=== PATIENT | male | born 1950 | race Caucasian/White ===

== ENCOUNTER 2019-05-16 08:00 | Outpatient (CLI) | payer OTHER ==
[2019-05-16 18:53] LABS: BASOPHILS # (AUTO) 0.1 10^3/uL (0.0-0.1); BASOPHILS % (AUTO) 0.8 %; EOSINOPHILS # (AUTO) 0.5 10^3/uL (0.0-0.7); HGB - HEMOGLOBIN 12.2 g/dL (14.0-18.0); LYMPHOCYTES # (AUTO) 2.2 10^3/uL (1.5-3.5); LYMPHOCYTES % (AUTO) 26.6 %; MEAN CORPUSCULAR HEMOGLOBIN 29.3 pg (27.0-31.0); MEAN CORPUSCULAR VOLUME 94.7 fL (80.0-94.0); MEAN PLATELET VOLUME 10.6 fL (7.4-11.4); MONOCYTES # (AUTO) 0.9 10^3/uL (0.0-1.0); MONOCYTES % (AUTO) 10.9 %; NEUTROPHILS # (AUTO) 4.6 10^3/uL (1.5-6.6); NEUTROPHILS % (AUTO) 55.5 %; PLT - PLATELET COUNT 223 10^3/uL (130-450); RED BLOOD COUNT 4.16 10^6/uL (4.70-6.10); RED CELL DISTRIBUTION WIDTH 13.2 % (12.0-15.0); WHITE BLOOD COUNT 8.4 x10^3/uL (4.8-10.8)
[2019-05-16 19:16] LABS: ALBUMIN 4.1 g/dL (3.2-5.5); ALBUMIN/GLOBULIN RATIO 1.5 (1.0-2.2); ALKALINE PHOSPHATASE 55 IU/L (42-121); ALT ALANINE AMINOTRANSFERASE 28 IU/L (10-60); AST ASPARTATE AMINOTRANSFERASE 29 IU/L (10-42); BILIRUBIN,TOTAL 0.7 mg/dL (0.2-1.0); BUN - BLOOD UREA NITROGEN 21 mg/dL (6-20); CALCIUM 9.6 mg/dL (8.5-10.3); CARBON DIOXIDE - CO2 21 mmol/L (21-32); CHLORIDE 110 mmol/L (101-111); CHOLESTEROL 175 mg/dL; CREATININE 1.4 mg/dL (0.6-1.2); GFR - MDRD 51 (>89); GLUCOSE 112 mg/dL (70-100); HDL CHOLESTEROL 44 mg/dL; LDL CHOLESTEROL,CALCULATED 98 mg/dL; LDL/HDL RATIO 2.2 (<3.6); SODIUM 142 mmol/L (135-145); TOTAL PROTEIN 6.8 g/dL (6.7-8.2); VLDL CHOLESTEROL 33 mg/dL
== END 2019-05-16 23:59 | disposition home or self-care (01) ==
LOC: LAB.WCP 08:00
PROVIDERS: ATTEND Family Medicine
DX: I10 Essential (primary) hypertension (principal); F10.20 Alcohol dependence, uncomplicated; E78.5 Hyperlipidemia, unspecified; F17.210 Nicotine dependence, cigarettes, uncomplicated; K21.9 Gastro-esophageal reflux disease without esophagitis; K76.0 Fatty (change of) liver, not elsewhere classified; Z12.5 Encounter for screening for malignant neoplasm of prostate
CPT/HCPCS: 36415; 80053; 80061; 83721; 84153; 84443; 85025

== ENCOUNTER 2021-01-25 07:00 | Outpatient (CLI) | payer OTHER ==
--- NOTE | 2021-01-25 15:04 | XRAY Report ---
PROCEDURE: Lumbar Spine 2 View INDICATIONS: SCIATICA, R SIDE TECHNIQUE: 3 views of the lumbar spine were acquired. COMPARISON: None. FINDINGS: Bones: 5 [id number] vertebrae are present. There is mild rightward curvature of the mid lumbar spine. Loss of normal lumbar lordosis. Mild grade 1 retrolisthesis of L3 on L4. Mild grade 1 anterol isthesis of L5 on S1. Multilevel disc space narrowing and endplate osteophyte formation. Facet hypert rophy throughout the mid and lower lumbar spine. No vertebral body compression fractures. No suspici ous bony lesions. Soft tissues: Overlying bowel gas pattern is normal. No suspicious soft tissue calcifications. IMPRESSION: Multilevel degenerative disc and facet disease. No acute fracture. No osseous lesion. If symptoms and/or clinical suspicion for pathology continue, further assessment with repeat plain film s, or advanced imaging (e.g., CT, MRI, or bone scan) is recommended for further assessment. Reviewed by: Merissa Ramirez MD on 01/25/2021 3:03 PM PDT Approved by: Merissa Ramirez MD on 01/25/2021 3:03 PM PDT Station ID: [id number]
== END 2021-01-25 23:59 | disposition home or self-care (01) ==
LOC: DI.N 07:00
PROVIDERS: ATTEND Physician Assistant Medical
DX: M43.16 Spondylolisthesis, lumbar region (principal); M43.17 Spondylolisthesis, lumbosacral region; M47.816 Spondylosis without myelopathy or radiculopathy, lumbar region; M51.36 Other intervertebral disc degeneration, lumbar region; R29.2 Abnormal reflex
CPT/HCPCS: 36415; 84443

== ENCOUNTER 2021-01-25 08:00 | Outpatient (CLI) | payer OTHER ==
[2021-01-25 18:12] LABS: THYROID STIMULATING HORMONE 1.63 uIU/mL (0.34-5.60)
== END 2021-01-25 23:59 | disposition home or self-care (01) ==
LOC: LAB.N 08:00
PROVIDERS: ATTEND Physician Assistant Medical
DX: R29.2 Abnormal reflex (principal)
CPT/HCPCS: 36415; 84443

== ENCOUNTER 2021-02-04 17:02 | Outpatient (CLI) | payer OTHER ==
--- NOTE | 2021-02-05 10:19 | Ultrasound Report ---
PROCEDURE: Head or Neck Soft Tissue INDICATIONS: MASS OF NECK TECHNIQUE: Real time scanning was performed of the neck region of interest, with image documentation . COMPARISON: None. FINDINGS: Ultrasound was performed in the anterior interest over the palpable abnormality. There is a 4.0 x 1.6 x 4.1 cm isoechoic, mildly heterogeneous subcutaneous mass is identical echotexture to sub cutaneous fat, most likely a lipoma. On Doppler ultrasound, there is no visible vascularity within th e mass. IMPRESSION: 1. The palpable abnormality is a 4.0 x 1.6 x 4.1 cm subcutaneous mass, most likely a lipoma. If there is symptoms of pain and rapid interval growth, a differential diagnosis is a liposarcoma. If clinica lly needed, MRI with and without contrast may be helpful. Reviewed by: Kenyon Martinez MD on 02/05/2021 10:17 AM PDT Approved by: Kenyon Martinez MD on 02/05/2021 10:17 AM PDT Station ID: [id number]
== END 2021-02-04 17:03 | disposition home or self-care (01) ==
LOC: DI 17:02
PROVIDERS: ATTEND Physician Assistant Medical
DX: R22.1 Localized swelling, mass and lump, neck (principal)

== ENCOUNTER 2021-02-07 08:00 | Outpatient (CLI) | payer OTHER ==
[2021-02-07 12:23] LABS: BASOPHILS # (AUTO) 0.1 10^3/uL (0.0-0.1); BASOPHILS % (AUTO) 0.8 %; EOSINOPHILS # (AUTO) 0.2 10^3/uL (0.0-0.7); HCT - HEMATOCRIT 42.4 % (42.0-52.0); HGB - HEMOGLOBIN 14.2 g/dL (14.0-18.0); LYMPHOCYTES # (AUTO) 1.8 10^3/uL (1.5-3.5); LYMPHOCYTES % (AUTO) 21.1 %; MEAN CORPUSCULAR HEMOGLOBIN 30.3 pg (27.0-31.0); MEAN CORPUSCULAR HGB CONC 33.5 g/dL (32.0-36.0); MEAN CORPUSCULAR VOLUME 90.4 fL (80.0-94.0); MEAN PLATELET VOLUME 10.5 fL (7.4-11.4); MONOCYTES % (AUTO) 11.6 %; NEUTROPHILS # (AUTO) 5.4 10^3/uL (1.5-6.6); NEUTROPHILS % (AUTO) 64.1 %; PLT - PLATELET COUNT 262 10^3/uL (130-450); RED BLOOD COUNT 4.69 10^6/uL (4.70-6.10); RED CELL DISTRIBUTION WIDTH 13.2 % (12.0-15.0); WHITE BLOOD COUNT 8.4 x10^3/uL (4.8-10.8)
[2021-02-07 12:26] LABS: % IRON SATURATION 32 % (20-50); ALBUMIN 4.8 g/dL (3.2-5.5); ALBUMIN/GLOBULIN RATIO 1.5 (1.0-2.2); ALKALINE PHOSPHATASE 72 IU/L (42-121); ALT ALANINE AMINOTRANSFERASE 34 IU/L (10-60); AST ASPARTATE AMINOTRANSFERASE 42 IU/L (10-42); BILIRUBIN,TOTAL 0.8 mg/dL (0.2-1.0); BUN - BLOOD UREA NITROGEN 33 mg/dL (6-20); CALCIUM 10.6 mg/dL (8.5-10.3); CARBON DIOXIDE - CO2 25 mmol/L (21-32); CHLORIDE 105 mmol/L (101-111); CHOL/HDL RATIO 4.7 (<5.0); CHOLESTEROL 244 mg/dL; CREATININE 1.6 mg/dL (0.6-1.2); GAMMA GLUTAMYL TRANSPEPTIDASE 27 IU/L (8-55); GFR - MDRD 43 (>89); GLUCOSE 108 mg/dL (70-100); HDL CHOLESTEROL 52 mg/dL; IRON 130 ug/dL (45-182); LDL CHOLESTEROL,CALCULATED 132 mg/dL; LDL/HDL RATIO 2.5 (<3.6); POTASSIUM 4.4 mmol/L (3.5-5.0); SODIUM 141 mmol/L (135-145); TOTAL IRON BINDING CAPACITY 412 ug/dL (250-450); TOTAL PROTEIN 7.9 g/dL (6.7-8.2); TRANSFERRIN 294 mg/dL (180-329); TRIGLYCERIDES 301 mg/dL; VLDL CHOLESTEROL 60 mg/dL
[2021-02-07 12:28] LABS: PT - PROTHROMBIN TIME 11.6 secs (9.9-12.6)
[2021-02-07 12:40] LABS: FERRITIN 92.9 ng/mL (23.9-336.2)
== END 2021-02-07 23:59 | disposition home or self-care (01) ==
LOC: LAB.WCP 08:00
PROVIDERS: ATTEND Family Medicine
DX: I10 Essential (primary) hypertension (principal); D64.9 Anemia, unspecified; F10.20 Alcohol dependence, uncomplicated; Z12.5 Encounter for screening for malignant neoplasm of prostate
CPT/HCPCS: 36415; 80053; 80061; 82607; 82728; 82977; 83540; 83721; 84153; 84466; 85025; 85610

== ENCOUNTER 2021-02-17 08:00 | Outpatient (CLI) | payer OTHER ==
[2021-02-19 15:26] LABS: ALBUMIN 4.2 g/dL (3.8-4.8); ALPHA 1 GLOBULIN 0.2 g/dL (0.2-0.3); ALPHA 2 GLOBULIN 0.8 g/dL (0.5-0.9); BETA 1 GLOBULIN 0.4 g/dL (0.4-0.6); BETA 2 GLOBULIN 0.3 g/dL (0.2-0.5); GAMMA GLOBULIN 0.6 g/dL (0.8-1.7)
== END 2021-02-17 23:59 | disposition home or self-care (01) ==
LOC: LAB.WCP 08:00
PROVIDERS: ATTEND Family Medicine
DX: E83.52 Hypercalcemia (principal)
CPT/HCPCS: 36415; 81599; 82306; 82330; 83970; 84155; 84165

== ENCOUNTER 2021-04-08 09:06 | Day surgery (SDC) | payer OTHER ==
[2021-04-08] MEDS ORDERED: LACTATED RINGERS 1,000 ML IV ONE ×3 (09:12→11:24)
[2021-04-08] MEDS ORDERED: MIDAZOLAM 2 MG/2 ML VIAL ONE ×3 (09:48→10:17)
[2021-04-08] MEDS ORDERED: fentaNYL 250 MCG/5 ML VIAL ONE (09:48)
--- NOTE | 2021-04-08 09:53 | HISTORY & PHYSICAL EXAMINATION ---
Chief Complaint - Chief Complaint Chief Complaint: here for colon cancer screening History of Present Illness - History Obtained From Records Reviewed: yes History obtained from: pt Exam Limitations: none - History of Present Illness HPI Comment/Other: No prior colon cancer screening. No symptoms of colon pathology or anemia. History - Past Medical History Cardiovascular: reports: Hypertension Respiratory: reports: None Endocrine/Autoimmune: reports: None GI: reports: GERD : reports: Kidney stones HEENT: reports: None Psych: reports: None Musculoskeletal: reports: Chronic back pain, Other Derm: reports: None MRSA Hx?: No - Past Surgical History General: reports: EGD Meds/Allgy - Home Medications Home Medications: Ambulatory Orders Medication Instructions Recorded Confirmed Gabapentin [Neurontin] 1 tab ORAL BID 04/07/21 04/08/21 Lisinopril [Zestril] 40 mg ORAL DAILY 04/07/21 04/08/21 Metoprolol Tartrate [Lopressor] 25 mg ORAL BID 04/07/21 04/08/21 Triamterene/Hydrochlorothiazid 1 tab ORAL DAILY 04/07/21 04/08/21 [Maxzide 37.5 mg-25 mg Tablet] amLODIPine [Norvasc] 10 mg ORAL DAILY 04/07/21 04/08/21 predniSONE [Prednisone 21-TAB dose 40 mg ORAL DAILY 04/07/21 04/08/21 pack] - Allergies Allergies/Adverse Reactions: Allergies Allergy/AdvReac Type Severity Reaction Status Date / Time Sulfa (Sulfonamide Allergy Anaphylaxis Verified 04/08/21 09:35 Antibiotics) Penicillins AdvReac Rash Verified 04/08/21 09:35 Review of Systems - Other Findings Other Findings: 10 pt ros as above otherwise unremarkable Exam - Vital Signs Reviewed Vital Signs: Yes Vital Signs: Vital Signs x48h Temp Pulse Resp BP Pulse Ox 04/08/21 09:24 36.9 C 65 15 141/73 H 98 - Physical Exam General Appearance: positive: Alert Eyes Bilateral: positive: PERRL, EOMI ENT: positive: No signs of dehydration Neck: positive: No JVD Respiratory: positive: Breath sounds nml Cardiovascular: positive: Regular rate & rhythm Abdomen: positive: Non-tender, No distention Neurologic/Psychiatric: positive: Oriented x3 Conclusion/Plan - Problem List (1) Colon cancer screening Conclusion/Plan: plan colonoscopy. parq held and consent obtained
[2021-04-08] MEDS ORDERED: PROPOFOL 200 MG/20 ML VIAL IVP ONE (10:40)
[2021-04-08] MEDS ORDERED: IPRATROPIUM/ALBUTEROL 3 ML NEB INH PRN ×2 (10:44→11:39)
[2021-04-08] MEDS ORDERED: METOCLOPRAMIDE 10 MG/2 ML VIAL IVP PRN (11:02)
[2021-04-08] MEDS ORDERED: ePHEDrine 50 MG/ML VIAL IVP PRN (11:02)
[2021-04-08] MEDS ORDERED: HYDROmorphone 0.5 MG/0.5 ML SYRINGE IVP PRN (11:02)
[2021-04-08] MEDS ORDERED: fentaNYL 100 MCG/2 ML VIAL IVP PRN (11:02)
[2021-04-08] MEDS ORDERED: ONDANSETRON 4 MG/2 ML VIAL IVP PRN (11:02)
[2021-04-08] MEDS ORDERED: MORPHINE 2 MG/ML CARPUJECT IVP PRN (11:02)
[2021-04-08] MEDS ORDERED: ATROPINE ABBOJECT 1 MG/10 ML SYRINGE IVP PRN (11:02)
[2021-04-08] MEDS ORDERED: NALOXONE 0.4 MG/ML VIAL IVP PRN (11:02)
--- NOTE | 2021-04-08 11:02 | CONSULTATION NOTE ---
Consultation Report: 1015- called in to GI room by RN and MD to assist/rescue sedation. See EMAR
--- NOTE | 2021-04-08 11:44 | CONSULTATION NOTE ---
Consultation Report: 1050 Duoneb tx given upon arrival to PACU for persistent coughing and exp wheezing during procedure, O2 sat stable. Thick yellow secretions noted. No signs of bile or aspiration noted during time witnessed in GI room. 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 requesting 2nd duoneb order. order placed as well as order for STAT portable CXR. Pt in Phase 2 recovery and VSS
[2021-04-08] MEDS ORDERED: LACTATED RINGERS 1,000 ML IV SCH (12:00)
--- NOTE | 2021-04-08 12:10 | XRAY Report ---
PROCEDURE: Chest 1 View X-Ray INDICATIONS: wheezing post colonoscopy TECHNIQUE: One view of the chest was acquired. COMPARISON: Chest x-ray 03/27/2016 FINDINGS: Surgical changes and devices: None. Lungs and pleura: No pleural effusions or pneumothorax. Lungs are clear. Mediastinum: Mediastinal contours appear normal. Heart size is normal. Bones and chest wall: No suspicious bony lesions. Overlying soft tissues appear unremarkable. IMPRESSION: No acute pulmonary process. Reviewed by: Esther Moura MD on 04/08/2021 12:08 PM PDT Approved by: Esther Moura MD on 04/08/2021 12:08 PM PDT Station ID: [id number]
[2021-04-08 12:27] VITALS: BP 120/65
== END 2021-04-08 09:07 | disposition home or self-care (01) ==
LOC: SDS 09:06
PROVIDERS: ATTEND Surgery
PROC: 0DBN8ZX Excision of Sigmoid Colon, Via Natural or Artificial Opening Endoscopic, Diagnostic (ICD-10-PCS; principal; 2021-04-08 10:15)
DX: Z12.11 Encounter for screening for malignant neoplasm of colon (principal); D12.5 Benign neoplasm of sigmoid colon; R06.2 Wheezing; R05 Cough; K57.30 Diverticulosis of large intestine without perforation or abscess without bleeding; I49.3 Ventricular premature depolarization
CPT/HCPCS: 45380; 71045; 94640; J3010; J7120

== ENCOUNTER 2021-05-10 12:46 | Emergency (ER) | payer OTHER ==
--- NOTE | 2021-05-10 14:10 | ED Physician Documentation ---
History of Present Illness - Stated complaint Stated Complaint: BODY ACHES, TROUBLE BREATHING - Chief complaint Chief Complaint: Resp - History obtained from History obtained from: Patient - Additonal information Additional information: Patient comes emergency department chief complaint of cough and body aches with low-grade fever for the last several days. He states that he is a smoker and quit yesterday. He uses an albuterol inhaler every 4-6 hours as needed and has been using this. He states he does not necessarily feel more short of breath than usual but mainly has noticed the cough. The cough seems dry and is intermittent. Patient states he measured a temperature of 100.4 earlier today. He does not know of any Covid exposures or other exposures to sickness. He has not been vaccinated for Covid. No other complaints at this time. Review of Systems Ten Systems: 10 systems reviewed and negative Constitutional: reports: Reviewed and negative Eyes: reports: Reviewed and negative Ears: reports: Reviewed and negative Nose: reports: Reviewed and negative Throat: reports: Reviewed and negative Cardiac: reports: Reviewed and negative. denies: Pedal edema Respiratory: reports: Cough. denies: Dyspnea GI: reports: Reviewed and negative : reports: Reviewed and negative Skin: reports: Reviewed and negative Musculoskeletal: reports: Reviewed and negative Neurologic: reports: Reviewed and negative Psychiatric: reports: Reviewed and negative Endocrine: reports: Reviewed and negative Immunocompromised: reports: Reviewed and negative PD PAST MEDICAL HISTORY - Past Medical History Cardiovascular: Hypertension, High cholesterol GI: GERD Psych: Anxiety Musculoskeletal: Other - Present Medications Home Medications: Ambulatory Orders Medication Instructions Recorded Confirmed Gabapentin [Neurontin] 1 tab ORAL BID 04/07/21 04/08/21 Lisinopril [Zestril] 40 mg ORAL DAILY 04/07/21 04/08/21 Metoprolol Tartrate [Lopressor] 25 mg ORAL BID 04/07/21 04/08/21 Triamterene/Hydrochlorothiazid 1 tab ORAL DAILY 04/07/21 04/08/21 [Maxzide 37.5 mg-25 mg Tablet] amLODIPine [Norvasc] 10 mg ORAL DAILY 04/07/21 04/08/21 predniSONE [Prednisone 21-TAB dose 40 mg ORAL DAILY 04/07/21 04/08/21 pack] Azithromycin [Zithromax] 0 mg PO DAILY #6 tablet 05/10/21 - Allergies Allergies/Adverse Reactions: Allergies Allergy/AdvReac Type Severity Reaction Status Date / Time Sulfa (Sulfonamide Allergy Anaphylaxis Verified 05/10/21 13:30 Antibiotics) Penicillins AdvReac Rash Verified 05/10/21 13:30 PD ED PE NORMAL - Vitals Vital signs reviewed: Yes - General General: Alert and oriented X 3, No acute distress, Well developed/nourished - HEENT HEENT: Atraumatic, PERRL, EOMI, Moist mucous membranes - Neck Neck: Supple, no meningeal sign - Cardiac Cardiac: RRR, No murmur, Strong equal pulses - Respiratory Respiratory: Clear bilaterally, Other (Slightly labored respirations, but patient is able to speak in full sentences.) - Abdomen Abdomen: Soft, Non tender, Non distended - Derm Derm: Normal color, Warm and dry, No rash - Extremities Extremities: No deformity, No edema - Neuro Neuro: Alert and oriented X 3, 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, Normal speech - Psych Psych: Normal mood, Normal affect Results - Vitals Vitals: Vital Signs - 24 hr 05/10/21 05/10/21 13:21 15:39 Temperature 37.8 C 37.3 C Heart Rate 57 L 60 Respiratory 20 18 Rate Blood Pressure 113/67 122/74 O2 Saturation 95 96 Oxygen O2 Source Room air - Rads (name of study) cxr Radiology: Final report received, EMP read indepedently, See rad report (mild atypical pneumonia) PD MEDICAL DECISION MAKING - ED course Complexity details: reviewed results, re-evaluated patient, considered differential, d/w patient ED course: Patient was swabbed for Covid and sent for chest x-ray. Covid test is pending at this time. Chest x-ray showed signs of a mild atypical pneumonia. Patient was started on Zithromax by prescription from the ED. He has been given instructions regarding follow-up on his Covid test. Departure - Departure Disposition: 01 Home, Self Care Clinical Impression: Atypical pneumonia, Viral syndrome Condition: Stable Instructions: ED Pneumonia Adult, ED Viral Syndrome Prescriptions: Azithromycin [Zithromax] 0 mg PO DAILY #6 tablet Comments: Your x-ray shows a small amount of atypical pneumonia. Please fill the antibiotic prescription to treat this. It is best if you get the antibiotics today and start them immediately. You may have a viral infection also, and can have similar symptoms with this. Your Covid test is pending and will be back tomorrow afternoon. You need to self quarantine until the results is done and negative. The results should be done in 48 to 72 hours. We will call with a positive result. The fastest way to get a negative result for confirmation though is to go to the hospital website at [email or web address]. Click on the my [facility] tab and sign up for the patient portal. If any friends or family get sick and would like to have a Covid test done, but do not have signs or symptoms that would necessitate being hospitalized, we encourage testing through our coronavirus swabbing station. Call [phone] to schedule an appointment. Discharge Date/Time: 05/10/21 15:40
--- NOTE | 2021-05-10 14:31 | XRAY Report ---
PROCEDURE: Chest 1 View X-Ray INDICATIONS: chest pain TECHNIQUE: One view of the chest was acquired. COMPARISON: 04/08/2021 chest x-ray FINDINGS: Surgical changes and devices: None. Lungs and pleura: No pleural effusions or pneumothorax. Mild patchy bilateral perihilar opacity. Mediastinum: Mediastinal contours appear normal. Heart size is normal. Bones and chest wall: No suspicious bony lesions. Overlying soft tissues appear unremarkable. IMPRESSION: Mild atypical pneumonia. Reviewed by: Merissa Ramirez MD on 05/10/2021 2:29 PM PDT Approved by: Merissa Ramirez MD on 05/10/2021 2:29 PM PDT Station ID: [id number]
[2021-05-10 15:40] VITALS: BP 122/74
== END 2021-05-10 15:40 | disposition home or self-care (01) ==
LOC: ED 12:46
DX: U07.1 COVID-19 (principal); J12.82 Pneumonia due to coronavirus disease 2019; I10 Essential (primary) hypertension
CPT/HCPCS: 99283; 99284

== ENCOUNTER 2021-05-17 13:53 | Outpatient (CLI) | payer OTHER, MEDICARE | END 2021-05-17 13:54 | disposition short-term general hospital (02) | LOC: EMS 13:53 | DX: R06.09 Other forms of dyspnea (principal); R05 Cough; R50.9 Fever, unspecified; J02.9 Acute pharyngitis, unspecified | CPT/HCPCS: A0425; A0427 ==

== ENCOUNTER 2021-07-01 13:11 | Outpatient (CLI) | payer OTHER ==
--- NOTE | 2021-07-01 13:57 | XRAY Report ---
PROCEDURE: Chest 2 View X-Ray INDICATIONS: COVID PNEUMONIA TECHNIQUE: 2 view(s) of the chest. COMPARISON: None. FINDINGS: Surgical changes and devices: None. Lungs and pleura: No pleural effusions or pneumothorax. Extensive airspace opacities are seen scatte red throughout bilateral lung hicks suggestive of multilobar infiltrates secondary to atypical pneum onia. Mediastinum: Mediastinal contours are normal. Heart size is normal. Bones and chest wall: No suspicious bony abnormalities. Soft tissues appear unremarkable. IMPRESSION: Extensive bilateral pulmonary infiltrates consistent with atypical viral pneumonia. No s ignificant pleural effusion or pneumothorax. Reviewed by: London Musa MD on 07/01/2021 1:55 PM PDT Approved by: London Musa MD on 07/01/2021 1:55 PM PDT Station ID: [id number]
== END 2021-07-01 13:12 | disposition home or self-care (01) ==
LOC: DI.N 13:11
PROVIDERS: ATTEND Family Medicine
DX: U07.1 COVID-19 (principal); J12.82 Pneumonia due to coronavirus disease 2019

== ENCOUNTER 2021-08-08 16:35 | Outpatient (CLI) | payer OTHER, MEDICARE ==
--- NOTE | 2021-08-11 00:27 | XRAY Report ---
PROCEDURE: Chest 2 View X-Ray INDICATIONS: COVID-19 PNEUMONIA TECHNIQUE: 2 view(s) of the chest. Images became available for interpretation on 08/10/2021 COMPARISON: None. FINDINGS: Surgical changes and devices: None. Lungs and pleura: Bilateral pulmonary opacities remain present although improved compared to prior ex am. Mediastinum: Mediastinal contours are normal. Heart size is enlarged. Bones and chest wall: No suspicious bony abnormalities. Soft tissues appear unremarkable. IMPRESSION: Improved although persistent bilateral pulmonary opacities most consistent with pneumoni a. Reviewed by: Esther Moura MD on 08/11/2021 12:25 AM PDT Approved by: Esther Moura MD on 08/11/2021 12:25 AM PDT Station ID: [id number]
== END 2021-08-08 16:36 | disposition home or self-care (01) ==
LOC: DI.N 16:35
PROVIDERS: ATTEND Family Medicine
DX: U07.1 COVID-19 (principal); J12.82 Pneumonia due to coronavirus disease 2019

== ENCOUNTER 2021-09-05 11:00 | Outpatient (CLI) | payer OTHER, MEDICARE ==
[2021-09-05 18:09] LABS: BASOPHILS # (AUTO) 0.1 10^3/uL (0.0-0.1); BASOPHILS % (AUTO) 1.2 %; EOSINOPHILS # (AUTO) 0.6 10^3/uL (0.0-0.7); HCT - HEMATOCRIT 39.5 % (42.0-52.0); HGB - HEMOGLOBIN 12.5 g/dL (14.0-18.0); LYMPHOCYTES # (AUTO) 3.2 10^3/uL (1.5-3.5); LYMPHOCYTES % (AUTO) 37.9 %; MEAN CORPUSCULAR HEMOGLOBIN 27.6 pg (27.0-31.0); MEAN CORPUSCULAR HGB CONC 31.6 g/dL (32.0-36.0); MEAN CORPUSCULAR VOLUME 87.2 fL (80.0-94.0); MEAN PLATELET VOLUME 10.3 fL (7.4-11.4); MONOCYTES # (AUTO) 0.9 10^3/uL (0.0-1.0); MONOCYTES % (AUTO) 10.5 %; NEUTROPHILS # (AUTO) 3.6 10^3/uL (1.5-6.6); NEUTROPHILS % (AUTO) 42.7 %; PLT - PLATELET COUNT 293 10^3/uL (130-450); RED BLOOD COUNT 4.53 10^6/uL (4.70-6.10); RED CELL DISTRIBUTION WIDTH 14.7 % (12.0-15.0); WHITE BLOOD COUNT 8.3 x10^3/uL (4.8-10.8)
[2021-09-05 18:23] LABS: ALBUMIN 4.1 g/dL (3.2-5.5); ALBUMIN/GLOBULIN RATIO 1.5 (1.0-2.2); BILIRUBIN,TOTAL 0.5 mg/dL (0.2-1.0); CALCIUM 9.1 mg/dL (8.5-10.3); CREATININE 1.1 mg/dL (0.6-1.2); POTASSIUM 3.5 mmol/L (3.5-5.0); TOTAL PROTEIN 6.9 g/dL (6.7-8.2)
== END 2021-09-05 11:01 | disposition home or self-care (01) ==
LOC: LAB.N 11:00
PROVIDERS: ATTEND Family Medicine
DX: N28.9 Disorder of kidney and ureter, unspecified (principal)
CPT/HCPCS: 36415; 80053; 85025

== ENCOUNTER 2021-11-15 13:29 | Outpatient (CLI) | payer OTHER, MEDICARE ==
[2021-11-15 17:59] LABS: CALCIUM 9.3 mg/dL (8.5-10.3); CREATININE 1.2 mg/dL (0.6-1.2); POTASSIUM 3.8 mmol/L (3.5-5.0)
== END 2021-11-15 13:30 | disposition home or self-care (01) ==
LOC: LAB.N 13:29
PROVIDERS: ATTEND Family Medicine
DX: N28.9 Disorder of kidney and ureter, unspecified (principal)
CPT/HCPCS: 36415; 80048

== ENCOUNTER 2023-06-04 11:47 | Outpatient (CLI) | payer MEDICARE ==
[2023-06-04 18:46] LABS: ALBUMIN 4.3 g/dL (3.2-5.5); ALBUMIN/GLOBULIN RATIO 1.7 (1.0-2.2); ALKALINE PHOSPHATASE 109 IU/L (42-121); ALT ALANINE AMINOTRANSFERASE 35 IU/L (10-60); AST ASPARTATE AMINOTRANSFERASE 27 IU/L (10-42); BILIRUBIN,TOTAL 0.3 mg/dL (0.2-1.0); BUN - BLOOD UREA NITROGEN 12 mg/dL (6-20); CALCIUM 9.6 mg/dL (8.5-10.3); CARBON DIOXIDE - CO2 25 mmol/L (21-32); CHLORIDE 109 mmol/L (101-111); CHOL/HDL RATIO 6.7 (<5.0); CHOLESTEROL 173 mg/dL; CREATININE 1.2 mg/dL (0.6-1.3); GFR - MDRD 60 (>89); GLUCOSE 107 mg/dL (74-104); HDL CHOLESTEROL 26 mg/dL; LDL CHOLESTEROL,CALCULATED 91 mg/dL; LDL/HDL RATIO 3.5 (<3.6); POTASSIUM 3.7 mmol/L (3.5-4.5); SODIUM 139 mmol/L (135-145); TOTAL PROTEIN 6.9 g/dL (6.4-8.9); TRIGLYCERIDES 281 mg/dL (48-352); VLDL CHOLESTEROL 56 mg/dL
[2023-06-04 18:47] LABS: BASOPHILS # (AUTO) 0.1 10^3/uL (0.0-0.1); BASOPHILS % (AUTO) 1.3 %; EOSINOPHILS # (AUTO) 0.5 10^3/uL (0.0-0.7); HCT - HEMATOCRIT 46.5 % (42.0-52.0); HGB - HEMOGLOBIN 15.4 g/dL (14.0-18.0); LYMPHOCYTES # (AUTO) 2.3 10^3/uL (1.5-3.5); MEAN CORPUSCULAR HEMOGLOBIN 29.1 pg (27.0-31.0); MEAN CORPUSCULAR HGB CONC 33.1 g/dL (32.0-36.0); MEAN CORPUSCULAR VOLUME 87.9 fL (80.0-94.0); NEUTROPHILS # (AUTO) 4.6 10^3/uL (1.5-6.6); NEUTROPHILS % (AUTO) 53.2 %; PLT - PLATELET COUNT 240 10^3/uL (130-450); RED BLOOD COUNT 5.29 10^6/uL (4.70-6.10); RED CELL DISTRIBUTION WIDTH 12.9 % (12.0-15.0); WHITE BLOOD COUNT 8.5 x10^3/uL (4.8-10.8)
== END 2023-06-04 11:48 | disposition home or self-care (01) ==
LOC: LAB.N 11:47
PROVIDERS: ATTEND Nurse Practitioner
DX: E78.5 Hyperlipidemia, unspecified (principal); I10 Essential (primary) hypertension
CPT/HCPCS: 36415; 80053; 80061; 83721; 85025

== ENCOUNTER 2023-06-22 09:56 | Outpatient (CLI) | payer MEDICARE ==
--- NOTE | 2023-06-22 14:16 | CT Report ---
PROCEDURE: Low Dose Lung Cancer Screen INDICATIONS: HIST OF SMOKING TECHNIQUE: A CT scan of the chest was performed. Intravenous contrast media was not administered. Images were re corded and evaluated at appropriate window settings. Reformats: axial MIP of the chest, coronal and s agittal. For radiation dose reduction, the following was used: automated exposure control, adjustment of mA and/or kV according to patient size. COMPARISON: None. FINDINGS: Image quality: Excellent. Prior cancer history: Unsure. Lungs and pleura: No pleural effusions. No pneumothorax. Trace anterior fibrotic change of the lungs . Mild bronchiectasis. Multiple solid pulmonary nodules. Largest examples include: -3 mm solid nodule, medial right upper lobe (series 3, image 88). -3 mm solid nodule, lateral right upper lobe (series 3, image 106). Mediastinum: Heart size is normal. No pericardial effusion. No large vessel abnormality. No mediastin al adenopathy by size criteria. Two vessel coronary artery calcifications. Chest wall and lower neck: 1.9 cm left thyroid nodule. No axillary or supraclavicular adenopathy by s ize. Bones: No aggressive osseous abnormality. Multilevel degenerative disc disease with opposing endplate sclerosis. Upper Abdomen: Incompletely visualized left renal cystic lesion with a thin internal septation, likel y a Bosniak 2 cyst requiring no further follow-up. Calcified splenic granuloma. IMPRESSION: Lung RAD: 2 - Benign. Recommendation: Continue annual screening in 12 Months with LDCT Non-Lung Significant Findings: Mass - Neck. 1.9 cm left thyroid nodule. Recommend thyroid ultrasound. Moderate to marked coronary calcifications for age. Consider cardiology referral. Reviewed by: Kishore Perez on 06/22/2023 2:15 PM PDT Approved by: Kishore Perez on 06/22/2023 2:15 PM PDT Station ID: [id number]
== END 2023-06-22 09:57 | disposition home or self-care (01) ==
LOC: DI 09:56
PROVIDERS: ATTEND Nurse Practitioner
DX: Z12.2 Encounter for screening for malignant neoplasm of respiratory organs (principal); Z87.891 Personal history of nicotine dependence; E04.1 Nontoxic single thyroid nodule; I25.10 Atherosclerotic heart disease of native coronary artery without angina pectoris; R91.8 Other nonspecific abnormal finding of lung field